=== PATIENT | male | born 1970 | race Caucasian/White ===

== ENCOUNTER 2018-12-12 14:47 | Emergency (ER) | payer SELFPAY ==
[~2018-12-12] VITALS: Ht 170.2 cm; Wt 63.5 kg
[2018-12-12 14:47] VITALS: Ht 170.2 cm; Wt 63.5 kg
== END 2018-12-12 17:36 | disposition expired ==
LOC: EDBD 14:47 → ED 14:47
DX: I46.9 Cardiac arrest, cause unspecified (principal)